=== PATIENT | male | born 1965 | race African-American/Black ===

== ENCOUNTER → 2016-11-20 | Outpatient (CLI) | payer OTHER | END | disposition home or self-care (01) | LOC: CARD 08:28 | PROVIDERS: ATTEND Psychiatry & Neurology Neurology | DX: I69.30 Unspecified sequelae of cerebral infarction (principal) ==

== ENCOUNTER 2023-12-04 16:24 | Inpatient (IN) | payer OTHER ==
[~2023-12-04] VITALS: Ht 182.9 cm; Wt 77.1 kg
[2023-12-04 17:21] LABS: BASOPHILS % 0.4 % (0.0-2.0); EOSINOPHILS % 1.6 % (0.0-5.0); HEMATOCRIT. 41.6 % (42.0-52.0); HEMOGLOBIN. 14.1 g/dL (14.0-18.0); MEAN CORPUSCULAR HEMOGLOBIN 28.9 pg (28.0-32.0); MEAN CORPUSCULAR VOLUME 85.2 fL (80.0-94.0); MEAN PLATELET VOLUME 9.4 fl (7.4-10.4); MONOCYTES % 9.8 % (2.0-8.0); NEUTROPHILS % 71.2 % (40.0-76.0); PLATELET 220 x1000/uL (130-400); RED BLOOD CELL COUNT 4.88 mill/uL (4.7-6.1); WHITE BLOOD COUNT 9.3 x1000/uL (4.5-11.0)
[2023-12-04 17:35] LABS: *AMPHETAMINES SCREEN URINE NEGATIVE (NEGATIVE); *BARBITURATES SCREEN URINE NEGATIVE (NEGATIVE); *BENZODIAZEPINES SCREEN URINE NEGATIVE (NEGATIVE); *COCAINE SCREEN URINE NEGATIVE (NEGATIVE); CANNABINOID URINE SCREEN NEGATIVE (NEGATIVE); ECSTASY MDMA SCREEN URINE NEGATIVE (NEGATIVE); METHADONE URINE SCREEN Neg (NEGATIVE); OPIATES URINE SCREEN NEGATIVE (NEGATIVE); PHENCYCLIDINE URINE SCREEN NEGATIVE (NEGATIVE)
[2023-12-04 17:35] LABS: ALANINE AMINOTRANSFERASE 23 IU/L (10-49); ALBUMIN 4.4 g/dL (3.2-4.8); ASPARTATE AMINOTRANSFERASE 20 IU/L (<34); BILIRUBIN TOTAL 1.1 mg/dL (0.1-1.0); CALCIUM 9.2 mg/dL (8.7-10.4); CARBON DIOXIDE 29 mEq/L (21-32); CHLORIDE 105 mEq/L (98-107); GLUCOSE 120 mg/dL (70-105); POTASSIUM 3.5 mEq/L (3.5-5.1); PROTEIN TOTAL 6.6 g/dL (6.0-8.3); SODIUM 140 mEq/L (136-145); UREA NITROGEN BLOOD 13 mg/dL (9-23)
[2023-12-04] MEDS: SODIUM CHLORIDE 0.9% 1,000 ML IV ONE (18:37)
[2023-12-04] MEDS: TRAMADOL 50MG TABLET PO ONE (20:18)
[2023-12-04] MEDS: ONDANSETRON HCL 4MG/2ML INJ IV ONE (20:18)
[2023-12-04 20:52] LABS: TROPONIN I HIGH SENSITIVITY 96 ng/L (3.0-53)
[2023-12-04] MEDS: MORPHINE SULFATE 4 MG/ML INJ (FOR IV/IM USE) IV NR (21:39)
[2023-12-04] MEDS: ENOXAPARIN 80MG/0.8ML SYR SUBCUT NR (21:41)
[2023-12-04] MEDS: ASPIRIN 325MG EC TABLET PO NR (21:41)
[2023-12-04] MEDS: METOPROLOL TARTRATE 25MG TABLET PO NR (21:46)
[2023-12-04 23:17] LABS: TROPONIN I HIGH SENSITIVITY 115 ng/L (3.0-53)
[2023-12-05 08:15] VITALS: BP 139/81; PULSE 79; RESP 18; TEMP 97.8
[2023-12-05 09:00] VITALS: BP 139/81; PULSE 79; RESP 18; TEMP 97.8
[2023-12-05] MEDS ORDERED: NORT10CA MT (09:20)
[2023-12-05] MEDS ORDERED: ASPI-1497 MT (09:20)
[2023-12-05] MEDS ORDERED: HYDR100T26 PO (09:20)
[2023-12-05] MEDS ORDERED: ATOR-2 PO (09:20)
[2023-12-05] MEDS ORDERED: LISI20TA31 MT (09:20)
[2023-12-05] MEDS ORDERED: MAGNESIUM/ALUMINUM HYDROXIDE/SIMETHICONE 30ML UDC PO PRN (11:30)
[2023-12-05] MEDS ORDERED: IPRATROPIUM/ALBUTEROL 0.5-3(2.5)MG/3ML NEB HHN PRN (11:30)
[2023-12-05] MEDS ORDERED: NITROGLYCERIN 0.4MG TABLET SL SL PRN (11:30)
[2023-12-05] MEDS ORDERED: CLONIDINE 0.1MG TABLET PO PRN (11:30)
[2023-12-05] MEDS ORDERED: ACETAMINOPHEN 325MG TABLET PO PRN ×2 (11:30)
[2023-12-05] MEDS ORDERED: GUAIFENESIN 200MG/10ML SUGAR FREE UDC PO PRN (11:30)
[2023-12-05] MEDS ORDERED: ONDANSETRON HCL 4MG/2ML INJ IV PRN (11:30)
[2023-12-05 12:00] VITALS: BP 137/77; PULSE 67; RESP 18; TEMP 97.9
[2023-12-05 13:51] LABS: PROTHROMBIN TIME 11.3 sec (9.6-11.0)
[2023-12-05] MEDS: LISINOPRIL 20MG TABLET PO SCH (15:20)
[2023-12-05] MEDS: ENOXAPARIN 80MG/0.8ML SYR SUBCUT NR (15:20)
[2023-12-05 16:00] VITALS: BP 107/77; PULSE 80; RESP 16; TEMP 97.9
[2023-12-05 19:08] LABS: PHOSPHORUS 2.3 mg/dL (2.5-4.9)
[2023-12-05 19:10] LABS: CREATINE KINASE MB FRACTION 1.4 ng/mL (0.5-3.6)
[2023-12-05 20:00] VITALS: BP 142/83; PULSE 74; RESP 18; TEMP 98.9
[2023-12-05] MEDS: ATORVASTATIN CALCIUM 40MG TABLET PO SCH (20:56)
[2023-12-05] MEDS: NORTRIPTYLINE HCL 10MG CAPSULE PO SCH (20:56)
[2023-12-05] MEDS ORDERED: ATORVASTATIN CALCIUM 40MG TABLET PO SCH (21:00)
[2023-12-05 22:08] LABS: CREATINE KINASE MB FRACTION 1.4 ng/mL (0.5-3.6)
[2023-12-06] VITALS: BP 126/83; PULSE 70; RESP 18; TEMP 98.3
[2023-12-06] LABS: CREATINE KINASE MB FRACTION 1.4 ng/mL (0.5-3.6)
[2023-12-06] MEDS: ENOXAPARIN 80MG/0.8ML SYR SUBCUT SCH
[2023-12-06 04:00] VITALS: BP 124/80; PULSE 80; RESP 18; TEMP 98
[2023-12-06 06:06] LABS: BASOPHILS % 0.8 % (0.0-2.0); DIFFERENTIAL COMMENT 0; EOSINOPHILS % 3.3 % (0.0-5.0); HEMATOCRIT. 38.2 % (42.0-52.0); HEMOGLOBIN. 13.2 g/dL (14.0-18.0); LYMPHOCYTES % 32.8 % (20.0-50.0); MEAN CORPUSCULAR HEMOGLOBIN 29.5 pg (28.0-32.0); MEAN CORPUSCULAR HGB CONC 34.6 g/dL (31.0-37.0); MEAN CORPUSCULAR VOLUME 85.2 fL (80.0-94.0); MEAN PLATELET VOLUME 10.4 fl (7.4-10.4); MONOCYTES % 9.9 % (2.0-8.0); NEUTROPHILS % 53.2 % (40.0-76.0); PLATELET 195 x1000/uL (130-400); RED BLOOD CELL COUNT 4.48 mill/uL (4.7-6.1); RED CELL DISTRIBUTION WIDTH 14.8 % (11.6-14.6); WHITE BLOOD COUNT 6.4 x1000/uL (4.5-11.0)
[2023-12-06 06:51] LABS: CARBON DIOXIDE 25 mEq/L (21-32); CHLORIDE 106 mEq/L (98-107); CREATININE 1.1 mg/dL (0.6-1.3); GLUCOSE 85 mg/dL (70-105); POTASSIUM 3.6 mEq/L (3.5-5.1); SODIUM 138 mEq/L (136-145); UREA NITROGEN BLOOD 15 mg/dL (9-23)
[2023-12-06 06:52] LABS: ALANINE AMINOTRANSFERASE 17 IU/L (10-49); ALBUMIN 4.2 g/dL (3.2-4.8); ASPARTATE AMINOTRANSFERASE 16 IU/L (<34); BILIRUBIN TOTAL 1.3 mg/dL (0.1-1.0); CALCIUM 9.7 mg/dL (8.7-10.4); CHOLESTEROL 135 mg/dL (<200); CREATINE KINASE 134 IU/L (46-171); CREATINE KINASE MB FRACTION 1.2 ng/mL (0.5-3.6); HDL CHOLESTEROL 49 mg/dL (>55); LDL CHOLESTEROL 76 mg/dL (5-100); PROTEIN TOTAL 6.7 g/dL (6.0-8.3); T4 FREE 1.05 ng/dL (0.89-1.76); THYROID STIMULATING HORMONE 1.06 uIU/mL (0.55-4.78); TRIGLYCERIDE 61 mg/dL (0-150)
[2023-12-06 08:00] VITALS: BP 128/69; PULSE 68; RESP 20; TEMP 97.8
[2023-12-06 08:29] LABS: TROPONIN I HIGH SENSITIVITY 99 ng/L (3.0-53)
[2023-12-06] MEDS: ASPIRIN 81MG TABLET PO SCH (09:09)
[2023-12-06] MEDS ORDERED: HYDR12.54 MT (11:59)
[2023-12-06 12:05] VITALS: BP 128/69; PULSE 68; TEMP 97.8; O2SAT 100
== END 2023-12-06 14:55 | disposition home or self-care (01) | DRG 280 ==
LOC: ER 16:24 → 7WST 21:06
PROVIDERS: ADMIT Internal Medicine; ATTEND Internal Medicine
DX: I11.0 Hypertensive heart disease with heart failure (principal); I50.33 Acute on chronic diastolic (congestive) heart failure; I21.A1 Myocardial infarction type 2; I49.9 Cardiac arrhythmia, unspecified; E78.00 Pure hypercholesterolemia, unspecified; Z86.73 Personal history of transient ischemic attack (TIA), and cerebral infarction without residual deficits
CPT/HCPCS: 36415; 71045; 80053; 80061; 80305; 82550; 82553; 83036; 83735; 83880; 84100; 84439; 84443; 84484; 85025; 93005; 93306; 99285; J1650; J2270; J2405; J7030